=== PATIENT | female | born 1990 | race Caucasian/White ===

== ENCOUNTER → 2016-05-30 | Outpatient (CLI) | payer BC ==
[~2016-05-30] MED LIST: HMLI SC; INSDGI SC
[2016-05-30 15:04] LABS: ESTIMATED AVERAGE GLUCOSE 237 mg/dl; HA1C FLAG Normal (Normal)
[2016-05-30 15:12] LABS: ALT/SGPT 30 U/L (12-78); BLOOD UREA NITROGEN 14 mg/dl (7-18); BUN/CREATININE RATIO 23.4 (10-20); CARBON DIOXIDE 27 mmol/L (21-32); CHLORIDE 100 mmol/L (98-107); CHOLESTEROL 251 mg/dl (0-200); CREATININE 0.59 mg/dl (0.60-1.20); GLUCOSE 174 mg/dl (70-99); POTASSIUM 4.2 mmol/L (3.5-5.1); SODIUM 135 mmol/L (136-145); TRIGLYCERIDES 124 mg/dl (0-150); VERY LOW DENSITY LIPOPROT CALC 25 mg/dl
[2016-05-30 15:17] LABS: CALCIUM 9.5 mg/dl (8.5-10.1)
[2016-05-30 15:22] LABS: ALB/GLOB RATIO 1.1 (0.9-2); ALKALINE PHOSPHATASE 56 U/L (45-117); AST/SGOT 16 U/L (15-37); HDL CHOLESTEROL 84 mg/dl; LDL CHOLESTEROL CALCULATED 142 mg/dl
[2016-05-30 15:47] LABS: RATIO 290.9 mcg/mg (0-30.0)
--- NOTE | 2016-06-05 11:55 | CODING QUERY MEDICAL NECESSITY ---
SUPPORTING DIAGNOSIS NEEDED A supporting diagnosis is required for the test/procedure performed on this patient in order for us to be reimbursed by the patient's insurance. Please provide a supporting diagnosis for the following test/procedure listed below next to the test name along with your signature. *If there is no additional diagnosis for this patient that would support the following test/procedure please document that below next to the test/procedure. Test(s)/Procedure(s) that require a supporting diagnosis: DOS 05/30 * Vitamin D DIAGNOSIS: Provider Signature: Date: Thank you Lucie Hess [facility] Information [facility] Once completed, please kindly fax back to [phone] For questions please call [phone]
== END | disposition home or self-care (01) ==
LOC: C.LAB1850 13:16
PROVIDERS: ATTEND Internal Medicine Endocrinology, Diabetes & Metabolism
DX: Z72.0 Tobacco use (principal); F41.8 Other specified anxiety disorders; E10.3299 Type 1 diabetes mellitus with mild nonproliferative diabetic retinopathy without macular edema, unspecified eye; E10.9 Type 1 diabetes mellitus without complications; E55.9 Vitamin D deficiency, unspecified

== ENCOUNTER 2022-07-19 21:20 | Observation (INO) ==
[2022-07-19] MEDS ORDERED: ONDANSETRON INJ 2 MG/ML 2 ML VIAL IV STA (21:32)
[2022-07-19] MEDS ORDERED: SODIUM CHLORIDE 0.9% 1000ML 1,000 ML IV ONE ×2 (21:44→22:28)
[2022-07-19 21:55] LABS: Basophils # (auto) 0.08 K/uL (0-0.2); Basophils % (auto) 0.5 %; Hematocrit (blood only) 45.7 % (37.0-47.0); Hemoglobin 14.7 g/dl (12.0-16.0); Immature Granulocytes # (auto) 0.08 K/uL (0.01-0.20); Immature Granulocytes % (auto) 0.5 %; Lymphocytes # (auto) 0.85 K/uL (1.2-3.4); Lymphocytes % (auto) 5.4 %; Mean Corpuscular Hemoglobin 38.3 pg (25.0-34.0); Mean Corpuscular Hgb Conc 32.2 g/dL (32.0-36.0); Mean Platelet Volume 10.6 fL (9.4-12.4); Monocytes # (auto) 1.06 K/uL (0.11-0.59); Monocytes % (auto) 6.7 %; Neutrophils # (auto) 13.66 K/uL (1.40-6.50); Neutrophils % (auto) 86.9 %; Platelet Count 265 K/uL (130-400); RDW Standard Deviation 57.5 fL (36.4-46.3); Red Blood Count 3.84 M/uL (4.20-5.40); White Blood Count 15.73 K/ul (4.8-10.8)
[2022-07-19 22:12] LABS: Base Excess VBG -23.5 mEq/L; HCO3 VBG 6 mmol/L; Oxygen Saturation VBG 81.5 %; PCO2 VBG 25 mmHg (38-50); PO2 VBG 55 mmHg; pH VBG 7.01 (7.36-7.41)
[2022-07-19 22:15] LABS: Macrocytosis Present; Tear Drop Cells 1+
[2022-07-19 22:16] LABS: Pregnancy Test, Serum Negative (Negative)
[2022-07-19 22:18] LABS: Albumin Globulin Ratio 1.3 (0.9-2); Albumin Level 4.3 gm/dl (3.4-5.0); BUN Creatinine Ratio 14.9 (10-20); Bilirubin,Total 0.4 mg/dl (0.2-1.0); Calcium 9.3 mg/dl (8.6-10.3); Creatinine Clr Calc Pharmacy 75.6 ml/min; Est GFR (African American) 85.9 ml/min; Est GFR (Non-African American) 74.1 ml/min; Globulin 3.3 gm/dl (2.5-4.0); Magnesium 1.9 mg/dl (1.7-2.4); Potassium 5.2 mmol/L (3.5-5.1); Total Protein 7.6 gm/dl (6.0-8.3); Troponin I High Sensitivity 14.9 pg/ml (0-14)
[2022-07-19] MEDS ORDERED: STAT IV Infusion **Titration per Protocol STA (22:20)
[2022-07-19] MEDS ORDERED: PHARMACY GLYCEMIC MGMT CONSULT PRN (22:20)
[2022-07-19] MEDS ORDERED: NovoLIN-R BOLUS FROM BAG IV ONE (22:30)
[2022-07-19] MEDS ORDERED: DKA GOAL RANGE 150-250 mg/dl ONE (22:30)
[2022-07-19] MEDS ORDERED: INSULIN REGULAR 250 UNITS in SODIUM CHLORIDE 0.9% 247.5 ML IV SCH (22:30)
[2022-07-19] MEDS ORDERED: LACTATED RINGER'S 1,000 ML IV ONE (22:34)
[2022-07-19 22:36] LABS: Procalcitonin 0.37 ng/ml (0-0.5)
[2022-07-19 22:57] LABS: Base Excess ABG -21.7 mEq/L (-9-1.8); HCO3 ABG 5 mmol/L (19-24); Oxygen Saturation ABG 99.3 % (90-95); PCO2 ABG 16 mmHg (35-46); PO2 ABG 130 mmHg (80-95)
[2022-07-19 23:01] LABS: POC Urine Bilirubin Negative (Negative); POC Urine Blood Negative (Negative); POC Urine Glucose 1000 (Normal); POC Urine Ketones 3+ (Large) (Negative); POC Urine Leukocytes Negative (Negative); POC Urine Nitrite Negative (Negative); POC Urine Protein 1+ (Negative); POC Urine Urobilinogen Normal (Normal); POC Urine pH 5 (4.5-7.5)
[2022-07-19 23:04] LABS: Allen Test POS (Pos)
[2022-07-19 23:06] LABS: pH ABG 7.13 (7.35-7.45)
[2022-07-19 23:09] LABS: Appearance Urine Clear (Clear); Bacteria Urine Automated Negative (Negative); Bilirubin Urine Negative (Negative); Blood Urine Trace (Negative); Color Urine Yellow; Epithelial Cell Urine Auto 20-30 /lpf (0-5); Glucose Urine UA 3+ (Negative); Ketones Urine 4+ (Negative); Leukocyte Esterase Urine Negative (Negative); Nitrite Urine Negative (Negative); Protein Urine 2+ (Negative); RBC Urine Automated 0-4 /hpf (0-4); Urobilinogen Urine Negative (Negative)
--- NOTE | 2022-07-19 23:39 | Emergency Department Note ---
History of Present Illness General Chief complaint: Vomiting Stated complaint: NOT EATING,TYPE 1 DIABETIC,UNABLE TO KEEP FOOD MATEUSZ Time Seen by Provider: 07/19/22 21:41 History of Present Illness This 31-year-old type I diabetic presents the ER complaining of fever today with nausea and vomiting. She has been taking her insulin as directed. Patient denies chest pain, dyspnea, diarrhea, abdominal pain, headache, sore throat. She cannot keep fluids down. No recent DKA. Home Medications Medication Instructions Recorded Confirmed Type cholecalciferol (vitamin D3) 25 0 mcg PO DAILY 07/19/22 07/19/22 History mcg (1,000 unit) tablet (Vitamin D3) insulin glargine 100 unit/mL (3 24 unit subcut QPM 07/19/22 07/19/22 History mL) subcutaneous pen (Lantus Solostar U-100 Insulin) insulin lispro 100 unit/mL 0 sliding scale dose subcut TIDM 07/19/22 07/19/22 History subcutaneous pen Allergies Allergy/AdvReac Type Severity Reaction Status Date / Time clarithromycin Allergy Unknown ? Unverified 07/19/22 23:53 Past Med/Surg History Medical History Diabetes mellitus type 1 (09/07/12) Surgical History No pertinent past surgical history Social History Smoking Status: Current every day smoker Tobacco Type: Cigarettes Preferred Language: Romanian Feels Safe at Home: Yes Review of Systems A total of 10 systems reviewed and were otherwise negative Physical Exam Vital Signs Vital Signs - 24 hr 07/19/22 21:22 07/19/22 22:54 07/19/22 22:50 Temperature 36.8 C Temperature Source Temporal Artery Scan Pulse Rate 118 H 103 H Pulse Rate [Apical] 103 H Pulse Rhythm Regular Pulse Rhythm [Apical] Regular Pulse Strength [Apical] Normal Respiratory Rate 22 16 16 Respiratory Effort / Characteristics Non-Labored Spontaneous Non-Labored Spontaneous Respiratory Depth Normal Normal Respiratory Pattern Regular Blood Pressure 133/74 Blood Pressure [Left Arm] 113/60 Blood Pressure Mean 93 Blood Pressure Mean [Left Arm] 77 Blood Pressure Position [Left Arm] Semi-fowlers Pulse Oximetry 97 100 100 Oxygen Delivery Method Room Air Room Air Room Air Sepsis Recent Fever Within 48 Hours No Sepsis New/Unexplained Change in Mental Status No Sepsis Action Taken by Nursing No Action Required 07/19/22 22:54 Temperature Temperature Source Pulse Rate 102 H Pulse Rate [Apical] Pulse Rhythm Pulse Rhythm [Apical] Pulse Strength [Apical] Respiratory Rate Respiratory Effort / Characteristics Respiratory Depth Respiratory Pattern Blood Pressure Blood Pressure [Left Arm] Blood Pressure Mean Blood Pressure Mean [Left Arm] Blood Pressure Position [Left Arm] Pulse Oximetry Oxygen Delivery Method Sepsis Recent Fever Within 48 Hours Sepsis New/Unexplained Change in Mental Status Sepsis Action Taken by Nursing VITALS: Vitals are noted on the nurse's note and reviewed by myself. Vital signs mildly tachycardic. GENERAL: Pleasant female dehydrated appearing, in no acute distress, nondiaphoretic, well-developed well-nourished. SKIN: The skin was without rashes, erythema, edema, or bruising. There is no tenting of the skin. Capillary reflex less than 2 seconds. HEAD: Normocephalic atraumatic. EARS: External auditory canals clear, tympanic membranes pearly trejo without erythema or effusion bilaterally. EYES: Pupils equal round and reactive to light and accommodation. Conjunctivae without injection, sclerae without icterus. Extraocular movements intact. NOSE: Patent, turbinates without inflammation or discharge. No sinus tenderness. MOUTH: Mucous membranes dry. Pharynx without erythema or exudate. Uvula mi dline. Airway patent. Tongue does not deviate. NECK: Supple without nuchal rigidity. No lymphadenopathy. No thyromegaly. Cervical spine is nontender. No JVD. HEART: Regular rate and rhythm LUNGS: Clear to auscultation bilaterally without wheezes, rales or rhonchi. No retractions or accessory muscle use. ABDOMEN: Positive bowel sounds x 4. Normal tympanic percussion. Soft, nontender, without masses or organomegaly. Avila sign negative. No guarding or rebound tenderness. No CVA tenderness MUSCULOSKELETAL: No muscle atrophy, erythema, or edema noted. NEURO: Patient was alert and oriented to person place and time. Normal sensation to light and sharp touch. No focal neurological deficits. Course Administered Medications Insulin Human Regular 250 (units/ Sodium Chloride) 250 mls @ 6.2 mls/hr IV .Q24H [facility]; Protocol Stop: 08/18/22 22:29 Last Admin: 07/19/22 22:47 Dose: 6.2 units/hr, 6.2 mls/hr Documented By: HOLLIE Co-signed By: SOSA Discontinued Medications Sodium Chloride (Nss 1000ml) 1,000 mls @ 999 mls/hr IV .Q1H1M ONE Stop: 07/19/22 22:44 Last Infusion: 07/19/22 22:49 Dose: 0 mls/hr Documented By: Admin: 07/19/22 21:47 Dose: 999 mls/hr Documented By: SOSA Sodium Chloride (Nss 1000ml) 1,000 mls @ 999 mls/hr IV .Q1H1M ONE Stop: 07/19/22 23:28 Last Infusion: 07/19/22 23:55 Dose: 0 mls/hr Documented By: Admin: 07/19/22 22:50 Dose: 999 mls/hr Documented By: DARBY Lactated Ringer's (Lr) 1,000 mls @ 999 mls/hr IV .Q1H1M ONE Stop: 07/19/22 23:34 Last Infusion: 07/19/22 23:56 Dose: 0 mls/hr Documented By: Admin: 07/19/22 22:53 Dose: 999 mls/hr Documented By: HOLLIE Thiamine HCl 100 mg/ Syringe 10 mls @ 2 mls/min IV NOW STA Stop: 07/19/22 23:56 Last Admin: 07/20/22 00:43 Dose: 2 mls/min Documented By: HOLLIE Ioversol (Optiray 320 500ml) 110 ml IV ONCE ONE Stop: 07/20/22 00:21 Last Admin: 07/20/22 00:17 Dose: 110 ml Documented By: CARLITOS Ondansetron HCl (Ondansetron Inj 2 Mg/Ml 2 Ml Vial) 4 mg IV NOW STA Stop: 07/19/22 21:33 Last Admin: 07/19/22 21:35 Dose: 4 mg Documented By: DARBY Critical Care Time Critical Care Time: Yes Total Critical Care Time: 35 I have personally spent 35 minutes of critical care time in the direct management of this patient. This includes bedside care, interpretation of diagnostic studies, and testing, discussion with consultants, patient, and family members, and other required patient management activities. This 35 minutes is in excess of all separately billable procedures. Medical Decision Making Medical Records Attestation: I reviewed the patient's medical records. Home Medications Current Medication List: was personally reviewed by me Laboratory Data Attestation: I reviewed the patient's lab results. 07/19/22 21:35 07/19/22 21:35 Lab Results 07/19/22 07/19/22 07/19/22 Range/Units 21:26 21:35 21:35 WBC 15.73 H (4.8-10.8) K/ul RBC 3.84 L (4.20-5.40) M/uL Hgb 14.7 (12.0-16.0) g/dl Hct 45.7 (37.0-47.0) % MCV 119.0 H (80.0-100.0) fL MCH 38.3 H (25.0-34.0) pg MCHC 32.2 (32.0-36.0) g/dL RDW Std Deviation 57.5 H (36.4-46.3) fL RDW Coeff of Mandeep 13.0 (11.5-14.5) % Plt Count 265 (130-400) K/uL MPV 10.6 (9.4-12.4) fL Immature Gran % (Auto) 0.5 % Neut % (Auto) 86.9 % Lymph % (Auto) 5.4 % Sauk % (Auto) 6.7 % Eos % (Auto) 0.0 % Baso % (Auto) 0.5 % Neut # (Auto) 13.66 H (1.40-6.50) K/uL Lymph # (Auto) 0.85 L (1.2-3.4) K/uL [place]k # (Auto) 1.06 H (0.11-0.59) K/uL Eos # (Auto) 0.00 (0-0.50) K/uL Baso # (Auto) 0.08 (0-0.2) K/uL Immature Gran # (Auto) 0.08 (0.01-0.20) K/uL Macrocytosis Present Tear Drop Cells 1+ ABG pH (7.35-7.45) ABG pCO2 (35-46) mmHg ABG pO2 (80-95) mmHg ABG HCO3 (19-24) mmol/L ABG O2 Saturation (90-95) % ABG Base Excess (-9-1.8) mEq/L Jerson Test (Pos) VBG pH (7.36-7.41) VBG pCO2 (38-50) mmHg VBG pO2 mmHg VBG HCO3 mmol/L VBG O2 Saturation % VBG Base Excess mEq/L Oxygen Given Sodium 133 L (136-145) mmol/L Potassium 5.2 H (3.5-5.1) mmol/L Chloride 97 L (98-107) mmol/L Carbon Dioxide 5 L* (21-32) mmol/L Anion Gap 31 H (3-11) BUN 15 (6-23) mg/dl Creatinine 1.01 (0.6-1.2) mg/dl Est Cr Clr Drug Dosing 75.6 ml/min Est GFR ( Amer) 85.9 ml/min Est GFR (Non-Af Amer) 74.1 ml/min BUN/Creatinine Ratio 14.9 (10-20) Glucose 313 H* (70-99(Fasting)) mg/dl POC Glucose 325 H* (70-99) mg/dl Lactate (0.4-2.0) mmol/L Calcium 9.3 (8.6-10.3) mg/dl Phosphorus (2.5-4.9) mg/dl Magnesium 1.9 (1.7-2.4) mg/dl Total Bilirubin 0.4 (0.2-1.0) mg/dl AST 29 (13-39) U/L ALT 38 (7-52) U/L Alkaline Phosphatase 79 (34-104) U/L Troponin I High Sens 14.9 H (0-14) pg/ml Total Protein 7.6 (6.0-8.3) gm/dl Albumin 4.3 (3.4-5.0) gm/dl Globulin 3.3 (2.5-4.0) gm/dl Albumin/Globulin Ratio 1.3 (0.9-2) Lipase 4 L (11-82) U/L Procalcitonin (0-0.5) ng/ml HCG, Qual (Negative) Urine Color Urine Appearance (Clear) Urine pH (4.5-7.5) POC Urine pH (4.5-7.5) Ur Specific Dickinson (1.000-1.030) Urine Protein (Negative) POC Urine Protein (Negative) Urine Glucose (UA) (Negative) POC Ur Glucose (UA) (Normal) Urine Ketones (Negative) POC Urine Ketones (Negative) Urine Blood (Negative) POC Urine Blood (Negative) Urine Nitrite (Negative) POC Urine Nitrite (Negative) Urine Bilirubin (Negative) POC Urine Bilirubin (Negative) Urine Urobilinogen (Negative) POC Urine Urobilinogen (Normal) Ur Leukocyte Esterase (Negative) POC U Leukocyte Esteras (Negative) Urine WBC (Auto) (0-5) /hpf Urine RBC (Auto) (0-4) /hpf U Hyaline Cast (Auto) (0-5) /lpf U Epithel Cells (Auto) (0-5) /lpf Urine Bacteria (Auto) (Negative) Adenovirus (PCR) (NotDetected) B. pertussis DNA (PCR) (NotDetected) B.parapertussis DNA PCR (NotDetected) C. pneumoniae DNA (PCR) (NotDetected) Coronavirus OC43 (PCR) (NotDetected) Coronavirus HKU1 (PCR) (NotDetected) Coronavirus 229E (PCR) (NotDetected) SARS-CoV-2 (PCR) (NotDetected) Coronavirus NL63 (PCR) (NotDetected) Human Metapneumovir PCR (NotDetected) Influenza Type A (PCR) (NotDetected) Influenza Type B (PCR) (NotDetected) M. pneumoniae (PCR) (NotDetected) Parainfluenza 1 (PCR) (NotDetected) Parainfluenza 2 (PCR) (NotDetected) Parainfluenza 3 (PCR) (NotDetected) Parainfluenza 4 (PCR) (NotDetected) RSV (PCR) (NotDetected) Entero/Rhino (PCR) (NotDetected) 07/19/22 07/19/22 07/19/22 Range/Units 21:35 21:52 21:52 WBC (4.8-10.8) K/ul RBC (4.20-5.40) M/uL Hgb (12.0-16.0) g/dl Hct (37.0-47.0) % MCV (80.0-100.0) fL MCH (25.0-34.0) pg MCHC (32.0-36.0) g/dL RDW Std Deviation (36.4-46.3) fL RDW Coeff of Mandeep (11.5-14.5) % Plt Count (130-400) K/uL MPV (9.4-12.4) fL Immature Gran % (Auto) % Neut % (Auto) % Lymph % (Auto) % Sauk % (Auto) % Eos % (Auto) % Baso % (Auto) % Neut # (Auto) (1.40-6.50) K/uL Lymph # (Auto) (1.2-3.4) K/uL Sauk # (Auto) (0.11-0.59) K/uL Eos # (Auto) (0-0.50) K/uL Baso # (Auto) (0-0.2) K/uL Immature Gran # (Auto) (0.01-0.20) K/uL Macrocytosis Tear Drop Cells ABG pH (7.35-7.45) ABG pCO2 (35-46) mmHg ABG pO2 (80-95) mmHg ABG HCO3 (19-24) mmol/L ABG O2 Saturation (90-95) % ABG Base Excess (-9-1.8) mEq/L Jerson Test (Pos) VBG pH 7.01 L (7.36-7.41) VBG pCO2 25 L (38-50) mmHg VBG pO2 55 mmHg VBG HCO3 6 mmol/L VBG O2 Saturation 81.5 % VBG Base Excess -23.5 mEq/L Oxygen Given Sodium (136-145) mmol/L Potassium (3.5-5.1) mmol/L Chloride (98-107) mmol/L Carbon Dioxide (21-32) mmol/L Anion Gap (3-11) BUN (6-23) mg/dl Creatinine (0.6-1.2) mg/dl Est Cr Clr Drug Dosing ml/min Est GFR ( Amer) ml/min Est GFR (Non-Af Amer) ml/min BUN/Creatinine Ratio (10-20) Glucose (70-99(Fasting)) mg/dl POC Glucose (70-99) mg/dl Lactate 2.8 H* (0.4-2.0) mmol/L Calcium (8.6-10.3) mg/dl Phosphorus (2.5-4.9) mg/dl Magnesium (1.7-2.4) mg/dl Total Bilirubin (0.2-1.0) mg/dl AST (13-39) U/L ALT (7-52) U/L Alkaline Phosphatase (34-104) U/L Troponin I High Sens (0-14) pg/ml Total Protein (6.0-8.3) gm/dl Albumin (3.4-5.0) gm/dl Globulin (2.5-4.0) gm/dl Albumin/Globulin Ratio (0.9-2) Lipase (11-82) U/L Procalcitonin 0.37 (0-0.5) ng/ml HCG, Qual Negative (Negative) Urine Color Urine Appearance (Clear) Urine pH (4.5-7.5) POC Urine pH (4.5-7.5) Ur Specific Dickinson (1.000-1.030) Urine Protein (Negative) POC Urine Protein (Negative) Urine Glucose (UA) (Negative) POC Ur Glucose (UA) (Normal) Urine Ketones (Negative) POC Urine Ketones (Negative) Urine Blood (Negative) POC Urine Blood (Negative) Urine Nitrite (Negative) POC Urine Nitrite (Negative) Urine Bilirubin (Negative) POC Urine Bilirubin (Negative) Urine Urobilinogen (Negative) POC Urine Urobilinogen (Normal) Ur Leukocyte Esterase (Negative) POC U Leukocyte Esteras (Negative) Urine WBC (Auto) (0-5) /hpf Urine RBC (Auto) (0-4) /hpf U Hyaline Cast (Auto) (0-5) /lpf U Epithel Cells (Auto) (0-5) /lpf Urine Bacteria (Auto) (Negative) Adenovirus (PCR) (NotDetected) B. pertussis DNA (PCR) (NotDetected) B.parapertussis DNA PCR (NotDetected) C. pneumoniae DNA (PCR) (NotDetected) Coronavirus OC43 (PCR) (NotDetected) Coronavirus HKU1 (PCR) (NotDetected) Coronavirus 229E (PCR) (NotDetected) SARS-CoV-2 (PCR) (NotDetected) Coronavirus NL63 (PCR) (NotDetected) Human Metapneumovir PCR (NotDetected) Influenza Type A (PCR) (NotDetected) Influenza Type B (PCR) (NotDetected) M. pneumoniae (PCR) (NotDetected) Parainfluenza 1 (PCR) (NotDetected) Parainfluenza 2 (PCR) (NotDetected) Parainfluenza 3 (PCR) (NotDetected) Parainfluenza 4 (PCR) (NotDetected) RSV (PCR) (NotDetected) Entero/Rhino (PCR) (NotDetected) 07/19/22 07/19/22 07/19/22 Range/Units 21:52 22:37 22:41 WBC (4.8-10.8) K/ul RBC (4.20-5.40) M/uL Hgb (12.0-16.0) g/dl Hct (37.0-47.0) % MCV (80.0-100.0) fL MCH (25.0-34.0) pg MCHC (32.0-36.0) g/dL RDW Std Deviation (36.4-46.3) fL RDW Coeff of Mandeep (11.5-14.5) % Plt Count (130-400) K/uL MPV (9.4-12.4) fL Immature Gran % (Auto) % Neut % (Auto) % Lymph % (Auto) % Sauk % (Auto) % Eos % (Auto) % Baso % (Auto) % Neut # (Auto) (1.40-6.50) K/uL Lymph # (Auto) (1.2-3.4) K/uL [place] # (Auto) (0.11-0.59) K/uL Eos # (Auto) (0-0.50) K/uL Baso # (Auto) (0-0.2) K/uL Immature Gran # (Auto) (0.01-0.20) K/uL Macrocytosis Tear Drop Cells ABG pH 7.13 L* (7.35-7.45) ABG pCO2 16 L (35-46) mmHg ABG pO2 130 H (80-95) mmHg ABG HCO3 5 L (19-24) mmol/L ABG O2 Saturation 99.3 H (90-95) % ABG Base Excess -21.7 L (-9-1.8) mEq/L Jerson Test POS (Pos) VBG pH (7.36-7.41) VBG pCO2 (38-50) mmHg VBG pO2 mmHg VBG HCO3 mmol/L VBG O2 Saturation % VBG Base Excess mEq/L Oxygen Given ROOM AIR Sodium 134 L (136-145) mmol/L Potassium 4.8 (3.5-5.1) mmol/L Chloride 98 (98-107) mmol/L Carbon Dioxide 7 L* (21-32) mmol/L Anion Gap 29 H (3-11) BUN 15 (6-23) mg/dl Creatinine 0.92 (0.6-1.2) mg/dl Est Cr Clr Drug Dosing 82.9 ml/min Est GFR ( Amer) 96.2 ml/min Est GFR (Non-Af Amer) 83.0 ml/min BUN/Creatinine Ratio 16.3 (10-20) Glucose 258 H (70-99(Fasting)) mg/dl POC Glucose (70-99) mg/dl Lactate (0.4-2.0) mmol/L Calcium 8.7 (8.6-10.3) mg/dl Phosphorus 5.3 H (2.5-4.9) mg/dl Magnesium (1.7-2.4) mg/dl Total Bilirubin (0.2-1.0) mg/dl AST (13-39) U/L ALT (7-52) U/L Alkaline Phosphatase (34-104) U/L Troponin I High Sens (0-14) pg/ml Total Protein (6.0-8.3) gm/dl Albumin (3.4-5.0) gm/dl Globulin (2.5-4.0) gm/dl Albumin/Globulin Ratio (0.9-2) Lipase (11-82) U/L Procalcitonin (0-0.5) ng/ml HCG, Qual (Negative) Urine Color Urine Appearance (Clear) Urine pH (4.5-7.5) POC Urine pH (4.5-7.5) Ur Specific Dickinson (1.000-1.030) Urine Protein (Negative) POC Urine Protein (Negative) Urine Glucose (UA) (Negative) POC Ur Glucose (UA) (Normal) Urine Ketones (Negative) POC Urine Ketones (Negative) Urine Blood (Negative) POC Urine Blood (Negative) Urine Nitrite (Negative) POC Urine Nitrite (Negative) Urine Bilirubin (Negative) POC Urine Bilirubin (Negative) Urine Urobilinogen (Negative) POC Urine Urobilinogen (Normal) Ur Leukocyte Esterase (Negative) POC U Leukocyte Esteras (Negative) Urine WBC (Auto) (0-5) /hpf Urine RBC (Auto) (0-4) /hpf U Hyaline Cast (Auto) (0-5) /lpf U Epithel Cells (Auto) (0-5) /lpf Urine Bacteria (Auto) (Negative) Adenovirus (PCR) Not Detected (NotDetected) B. pertussis DNA (PCR) Not Detected (NotDetected) B.parapertussis DNA PCR Not Detected (NotDetected) C. pneumoniae DNA (PCR) Not Detected (NotDetected) Coronavirus OC43 (PCR) Not Detected (NotDetected) Coronavirus HKU1 (PCR) Not Detected (NotDetected) Coronavirus 229E (PCR) Not Detected (NotDetected) SARS-CoV-2 (PCR) DETECTED A* (NotDetected) Coronavirus NL63 (PCR) Not Detected (NotDetected) Human Metapneumovir PCR Not Detected (NotDetected) Influenza Type A (PCR) Not Detected (NotDetected) Influenza Type B (PCR) Not Detected (NotDetected) M. pneumoniae (PCR) Not Detected (NotDetected) Parainfluenza 1 (PCR) Not Detected (NotDetected) Parainfluenza 2 (PCR) Not Detected (NotDetected) Parainfluenza 3 (PCR) Not Detected (NotDetected) Parainfluenza 4 (PCR) Not Detected (NotDetected) RSV (PCR) Not Detected (NotDetected) Entero/Rhino (PCR) Not Detected (NotDetected) 07/19/22 07/19/22 Range/Units 22:44 22:44 WBC (4.8-10.8) K/ul RBC (4.20-5.40) M/uL Hgb (12.0-16.0) g/dl Hct (37.0-47.0) % MCV (80.0-100.0) fL MCH (25.0-34.0) pg MCHC (32.0-36.0) g/dL RDW Std Deviation (36.4-46.3) fL RDW Coeff of Mandeep (11.5-14.5) % Plt Count (130-400) K/uL MPV (9.4-12.4) fL Immature Gran % (Auto) % Neut % (Auto) % Lymph % (Auto) % [place] % (Auto) % Eos % (Auto) % Baso % (Auto) % Neut # (Auto) (1.40-6.50) K/uL Lymph # (Auto) (1.2-3.4) K/uL [place] # (Auto) (0.11-0.59) K/uL Eos # (Auto) (0-0.50) K/uL Baso # (Auto) (0-0.2) K/uL Immature Gran # (Auto) (0.01-0.20) K/uL Macrocytosis Tear Drop Cells ABG pH (7.35-7.45) ABG pCO2 (35-46) mmHg ABG pO2 (80-95) mmHg ABG HCO3 (19-24) mmol/L ABG O2 Saturation (90-95) % ABG Base Excess (-9-1.8) mEq/L Jerson Test (Pos) VBG pH (7.36-7.41) VBG pCO2 (38-50) mmHg VBG pO2 mmHg VBG HCO3 mmol/L VBG O2 Saturation % VBG Base Excess mEq/L Oxygen Given Sodium (136-145) mmol/L Potassium (3.5-5.1) mmol/L Chloride (98-107) mmol/L Carbon Dioxide (21-32) mmol/L Anion Gap (3-11) BUN (6-23) mg/dl Creatinine (0.6-1.2) mg/dl Est Cr Clr Drug Dosing ml/min Est GFR ( Amer) ml/min Est GFR (Non-Af Amer) ml/min BUN/Creatinine Ratio (10-20) Glucose (70-99(Fasting)) mg/dl POC Glucose (70-99) mg/dl Lactate (0.4-2.0) mmol/L Calcium (8.6-10.3) mg/dl Phosphorus (2.5-4.9) mg/dl Magnesium (1.7-2.4) mg/dl Total Bilirubin (0.2-1.0) mg/dl AST (13-39) U/L ALT (7-52) U/L Alkaline Phosphatase (34-104) U/L Troponin I High Sens (0-14) pg/ml Total Protein (6.0-8.3) gm/dl Albumin (3.4-5.0) gm/dl Globulin (2.5-4.0) gm/dl Albumin/Globulin Ratio (0.9-2) Lipase (11-82) U/L Procalcitonin (0-0.5) ng/ml HCG, Qual (Negative) Urine Color Yellow Urine Appearance Clear (Clear) Urine pH 5.0 (4.5-7.5) POC Urine pH 5 (4.5-7.5) Ur Specific Dickinson 1.020 (1.000-1.030) Urine Protein 2+ H (Negative) POC Urine Protein 1+ H (Negative) Urine Glucose (UA) 3+ H (Negative) POC Ur Glucose (UA) 1000 H (Normal) Urine Ketones 4+ H (Negative) POC Urine Ketones 3+ (Large) H (Negative) Urine Blood Trace H (Negative) POC Urine Blood Negative (Negative) Urine Nitrite Negative (Negative) POC Urine Nitrite Negative (Negative) Urine Bilirubin Negative (Negative) POC Urine Bilirubin Negative (Negative) Urine Urobilinogen Negative (Negative) POC Urine Urobilinogen Normal (Normal) Ur Leukocyte Esterase Negative (Negative) POC U Leukocyte Esteras Negative (Negative) Urine WBC (Auto) 1-5 (0-5) /hpf Urine RBC (Auto) 0-4 (0-4) /hpf U Hyaline Cast (Auto) 1-5 (0-5) /lpf U Epithel Cells (Auto) 20-30 H (0-5) /lpf Urine Bacteria (Auto) Negative (Negative) Adenovirus (PCR) (NotDetected) B. pertussis DNA (PCR) (NotDetected) B.parapertussis DNA PCR (NotDetected) C. pneumoniae DNA (PCR) (NotDetected) Coronavirus OC43 (PCR) (NotDetected) Coronavirus HKU1 (PCR) (NotDetected) Coronavirus 229E (PCR) (NotDetected) SARS-CoV-2 (PCR) (NotDetected) Coronavirus NL63 (PCR) (NotDetected) Human Metapneumovir PCR (NotDetected) Influenza Type A (PCR) (NotDetected) Influenza Type B (PCR) (NotDetected) M. pneumoniae (PCR) (NotDetected) Parainfluenza 1 (PCR) (NotDetected) Parainfluenza 2 (PCR) (NotDetected) Parainfluenza 3 (PCR) (NotDetected) Parainfluenza 4 (PCR) (NotDetected) RSV (PCR) (NotDetected) Entero/Rhino (PCR) (NotDetected) Imaging Data Attestation: I personally reviewed and interpreted this imaging study as follows: Radiologist's Impression: Chest CTA 07/19/22 23:34 Exam(s): CTA CHEST IV Amt: 110 ML EXAM: CT Angiography Chest With Intravenous Contrast CLINICAL HISTORY: Reason for exam: PE. TECHNIQUE: Axial computed tomographic angiography images of the chest with intravenous contrast. CTDI is 24.38 mGy and DLP is 371.41 mGy-cm. Automated exposure control was utilized for the study. A dose lowering technique was utilized adhering to the principles of ALARA. MIP reconstructed images were created and reviewed. COMPARISON: No relevant prior studies available. FINDINGS: Pulmonary arteries: Unremarkable. No pulmonary embolism. Aorta: No acute findings. No thoracic aortic aneurysm. Lungs: Unremarkable. No mass. No consolidation. Pleural space: Unremarkable. No significant effusion. No pneumothorax. Heart: Unremarkable. No cardiomegaly. No significant pericardial effusion. No evidence of RV dysfunction. Bones/joints: No acute fracture. No dislocation. Soft tissues: Unremarkable. Lymph nodes: Unremarkable. No enlarged lymph nodes. IMPRESSION: Normal chest CTA. No pulmonary embolism. Electronically signed by: Finesse Allen MD 07/20/22 01:00 AM [facility] Narrative Prior records/ancillary studies reviewed. Triage Nursing notes reviewed. Additional history obtained from the family. The patient's history was concerning for nausea, vomiting, and abdominal pain. Differential diagnosis: Etiologies such as DKA, gastroenteritis, food borne illness, infections, appendicitis, diverticulitis, inflammatory bowel disease, obstruction, GI bleed, biliary pathology, as well as others were entertained. Physical examination findings: As above. Abdominal examination revealed nontender. Vital signs reviewed and revealed mildly tachycardic. ER treatment provided: IV hydration 2 L NSS. 2 lines were placed. Zofran, insulin with drip, maintenance fluids were placed On reassessment the patient felt better. Patient was tolerating p.o. intake. Diagnostics interpretation by me: The labs Independently Interpreted by myself revealed hyperglycemia with DKA ABG and VBG concerning for severe DKA Positive COVID Blood cultures pending Imaging studies: Chest x-ray with no acute consolidation, pneumothorax or free air per my indep endent interpretation CTA negative for PE per my independent interpretation and reviewed by radiology Consultation: A consultation was placed with the hospitalist. The case was discussed and diagnostics were reviewed. The patient was evaluated in the ER for further treatment. This appears to be consistent with DKA. 2 lines were placed. Patient was hydrated as above. Insulin drip was started. Labs and diagnostics were independently interpreted by myself. Troponin minimally elevated. EKG is nonischemic. Patient had no chest pain. This most likely is a type II. She was reassessed multiple times. Medicine consulted and the case was discussed. Patient will be admitted to the hospital. Patient is agreeable. Patient was reassessed multiple times. She was improving.. By the evaluation outlined above emergent etiologies such as appendicitis, diverticulitis, obstruction, mese nteric ischemia, aortic pathology, inflammatory bowel disease, renal colic, PUD, biliary pathology, UTI, as well as others were deemed relatively unlikely. The pt informed about the findings as listed above. All questions were answered and pleased with the treatment. The chart was completed utilizing [employer] Speech voice recognition software. Grammatical errors, random word insertions, pronoun errors, and incomplete sentences are an occassional consequence of this system due to software limitations, ambient noise, and hardware issues. Any formal questions or concerns about the content, text, or information contained within the body of this dictation should be directly addressed to the physician fitness assistant for clarification. Impression & Plan DKA (diabetic ketoacidosis) Discharge Plan Visit Data Chief Complaint: Vomiting Stated Complaint: NOT EATING,TYPE 1 DIABETIC,UNABLE TO KEEP FOOD MATEUSZ ED Provider: Dave Knott ED Midlevel Provider: Gabby Allen Discharge Problem: DKA (diabetic ketoacidosis) Patient Disposition: Admitted As Inpatient Condition: Fair Forms Stand Alone Forms: [employer] Prescriptions Prescriptions: No Action insulin lispro 100 unit/mL insulin pen 0 sliding scale dose SUBCUT TIDM Rx Instructions: Per sliding scale & correction factor insulin glargine [Lantus Solostar U-100 Insulin] 100 unit/mL (3 mL) insulin pen 24 unit SUBCUT QPM cholecalciferol (vitamin D3) [Vitamin D3] 25 mcg (1,000 unit) Tablet 0 mcg PO DAILY Referrals Referrals: Ed Stone [Primary Care Provider] - DKA (diabetic ketoacidosis) Qualifiers: Diabetes mellitus type: type 1 Diabetes mellitus complication detail: without coma Qualified Code(s): E10.10 - Type 1 diabetes mellitus with ketoacidosis without coma
[2022-07-19] MEDS ORDERED: THIAMINE HCL 100 MG in SYRINGE 9 ML IV STA (23:52)
[2022-07-20] MEDS ORDERED: OPTIRAY 320 500ml IV ONE (00:20)
[2022-07-20 00:33] LABS: Adenovirus PCR Not Detected (NotDetected); Coronavirus 229E PCR Not Detected (NotDetected); Coronavirus CoV-2 (COVID19)PCR DETECTED (NotDetected); Coronavirus HKU1 PCR Not Detected (NotDetected); Coronavirus NL63 PCR Not Detected (NotDetected); Coronavirus OC43PCR Not Detected (NotDetected); Human Metapneumovirus PCR Not Detected (NotDetected); Influenza A PCR Not Detected (NotDetected); Rhinovirus/Enterovirus PCR Not Detected (NotDetected)
[2022-07-20 00:34] LABS: Bordetella parapertussis PCR Not Detected (NotDetected); Bordetella pertussis PCR Not Detected (NotDetected); Chlamydia pneumoniae PCR Not Detected (NotDetected); Influenza B PCR Not Detected (NotDetected); Mycoplasma pneumoniae PCR Not Detected (NotDetected); Parainfluenza Virus 1 PCR Not Detected (NotDetected); Parainfluenza Virus 2 PCR Not Detected (NotDetected); Parainfluenza Virus 3 PCR Not Detected (NotDetected); Parainfluenza Virus 4 PCR Not Detected (NotDetected); Respiratory Syncytial VirusPCR Not Detected (NotDetected)
--- NOTE | 2022-07-20 01:01 | CT Scan Report ---
Exam(s): CTA CHEST IV Amt: 110 ML EXAM: CT Angiography Chest With Intravenous Contrast CLINICAL HISTORY: Reason for exam: PE. TECHNIQUE: Axial computed tomographic angiography images of the chest with intravenous contrast. CTDI is 24.38 mGy and DLP is 371.41 mGy-cm. Automated exposure control was utilized for the study. A dose lowering technique was utilized adhering to the principles of ALARA. MIP reconstructed images were created and reviewed. COMPARISON: No relevant prior studies available. FINDINGS: Pulmonary arteries: Unremarkable. No pulmonary embolism. Aorta: No acute findings. No thoracic aortic aneurysm. Lungs: Unremarkable. No mass. No consolidation. Pleural space: Unremarkable. No significant effusion. No pneumothorax. Heart: Unremarkable. No cardiomegaly. No significant pericardial effusion. No evidence of RV dysfunction. Bones/joints: No acute fracture. No dislocation. Soft tissues: Unremarkable. Lymph nodes: Unremarkable. No enlarged lymph nodes. IMPRESSION: Normal chest CTA. No pulmonary embolism. Electronically signed by: Finesse Allen MD 07/20/22 01:00 AM
[2022-07-20 01:07] LABS: BUN Creatinine Ratio 16.3 (10-20); Calcium 8.7 mg/dl (8.6-10.3); Creatinine Clr Calc Pharmacy 82.9 ml/min; Est GFR (African American) 96.2 ml/min; Phosphorus 5.3 mg/dl (2.5-4.9); Potassium 4.8 mmol/L (3.5-5.1)
--- NOTE | 2022-07-20 01:09 | History and Physical Report ---
DATE OF ADMISSION: 07/19/2022. CHIEF COMPLAINT: DKA, history of COVID. HISTORY OF PRESENT ILLNESS: This is a 31-year-old female with past medical history significant for type 1 diabetes, diagnosed when she was 7 years old, on insulin, history of celiac disease, presents with nausea, vomiting, shortness of breath and chest discomfort. The patient says the cough started yesterday and she was feeling short of breath since last couple of days, but got progressively worse walking short distance, making short of breath and also some chest tightness and today she also started to have nausea, vomiting and sugars were running high, the reason she came here and found to be in DKA. She says she also had some fever spike today. Denies any runny nose or sore throat. No headache, no blurred visions, no earache, no sore throat, no abdominal pain. Normal bowel and bladder movements. Currently, resting comfortably and hemodynamically stable. ALLERGIES: CLARITHROMYCIN. PAST MEDICAL HISTORY: As mentioned above. PAST SURGICAL HISTORY: EGDs. MEDICATIONS: The patient is on Lantus 60 units subcutaneous daily. FAMILY HISTORY: Significant for father had heart disease. Mother has hypertension . Both sides history of cancer.. Father also had a stroke. SOCIAL HISTORY: Smokes 1/2 pack to 1 pack daily. Alcohol, she has 2-3 shots of vodka or whiskey daily. Denies any drug use. REVIEW OF SYSTEMS: As per HPI. Rest of the review of systems is negative. PHYSICAL EXAMINATION: GENERAL: The patient is of moderate build, not in acute distress. VITAL SIGNS: Temperature 36.8, pulse 102, respiratory rate 16, blood pressure 113/60, oxygen 100% on room air. HEENT: Pupils equal, round and reactive to light. Oral mucosa moist. NECK: No JVD, no neck masses. CARDIOVASCULAR: S1 and S2 heard, regular rate and rhythm. No murmur, no gallop. RESPIRATORY SYSTEM: Normal AP diameter. No accessory muscle use. No wheezing, no crackles. ABDOMEN: Soft, bowel sounds present, nontender, no distention. CENTRAL NERVOUS SYSTEM: Alert and oriented. Speech is clear. No facial droop. Obeys simple commands. Moves extremities. EXTREMITIES: No edema, no erythema. LABORATORY DATA: WBC 15, hemoglobin 14.7, hematocrit 45.7, platelets 265. ABGs, pH of 7.13, pCO2 of 16, oxygen 130, bicarbonate 5. Oxygen 99%. Sodium 133, potassium 5.2, chloride 97, bicarbonate 5, BUN 15, creatinine 1.01, serum glucose 313. Lactate 2.8, calcium 9.3, magnesium 1.9, total bilirubin 0.4, AST 29, ALT 38, alkaline phosphatase 79. Troponin I high sensitivity 14.9. Lipase 4. HCG qualitative negative. Urinalysis, +6 glucose, +4 ketones. SARS-COVID pending, but seems to have COVID positive. IMAGING DATA: Chest x-ray, no acute findings. EKG: Sinus tachycardia at a rate of 109, no acute ST changes seen. ASSESSMENT AND PLAN: This is a 31-year-old female who presents in diabetic ketoacidosis. 1. Diabetic ketoacidosis. Coronavirus disease probably contributing. Starting on insulin drip diabetic ketoacidosis protocol. Aggressive IV fluids and maintenance fluids with potassium supplement as per diabetic ketoacidosis protocol. Labs every 4 hour as per diabetic ketoacidosis protocol. Closely monitor in the tele floor. Glycemic pharmacy consult. Diabetic education consult. We will monitor the response. 2. Shortness of breath, most likely secondary to metabolic acidosis, but also since she is coronavirus disease positive, we will check CT chest to rule out any disease or PE. The patient is okay for CAT scan. Saturating okay on room air. 3. Coronavirus disease 2019. The patient is coronavirus disease vaccinated, but not boosted. Saturating okay on room air. Coronavirus disease precautions. We will monitor. 4. Elevated lactate, mostly from diabetic ketoacidosis. We will follow the repeat labs. 5. Mild elevation of troponin. The patient has had some chest discomfort. EKG okay. Mostly from the diabetic ketoacidosis. We will follow serial enzymes. If pain continues, will do cardiac consult. Monitor in the tele floor. 6. History of celiac disease. 7. Tobacco abuse. Smokes 1/2 pack to 1 pack a day. Counseling. 8. Alcoholism. She drinks 2-3 shots of whiskey, vodka daily, but she says she has never had withdrawal symptoms, even if she doesn't drink for several days. We will monitor for any withdrawal symptoms. DISPOSITION: Closely monitor in tele floor. Level 1 full code. Expect to discharge home and follow with family doctor. Job ID: [id number] CHARLETTE
[2022-07-20 01:44] LABS: Troponin I High Sensitivity 11.4 pg/ml (0-14)
[2022-07-20] MEDS ORDERED: PENDING D5 1/2NS+20mEq KCL IVF SCH (01:54)
[2022-07-20] MEDS ORDERED: SODIUM CHLORIDE 0.9% 1000ML 1,000 ML IV SCH (01:54)
[2022-07-20] MEDS ORDERED: NITROGLYCERIN SL 0.4 MG/TAB TAB SL PRN (01:54)
[2022-07-20] MEDS ORDERED: ONDANSETRON INJ 2 MG/ML 2 ML VIAL IV PRN (01:54)
[2022-07-20] MEDS ORDERED: PENDING 1/2NSS+20mEq KCL IVF SCH (01:54)
[2022-07-20] MEDS ORDERED: STAT IV Infusion **Titration per Protocol STA (01:54)
[2022-07-20] MEDS ORDERED: PHARMACY GLYCEMIC MGMT CONSULT PRN (01:54)
[2022-07-20] MEDS ORDERED: DKA GOAL RANGE 150-250 mg/dl ONE (01:54)
[2022-07-20] MEDS ORDERED: ACETAMINOPHEN 325 MG TAB PO PRN (01:54)
[2022-07-20] MEDS ORDERED: CARBOHYDRATES FOR HYPOGLYCEMIA PO PRN (02:15)
[2022-07-20] MEDS ORDERED: GLUCOSE 10 TAB/TUBE PO PRN (02:15)
[2022-07-20] MEDS ORDERED: INSULIN REGULAR 250 UNITS in SODIUM CHLORIDE 0.9% 247.5 ML IV SCH (02:15)
[2022-07-20] MEDS ORDERED: GLUCAGON FOR INJ 1 MG VIAL IM PRN (02:15)
[2022-07-20] MEDS ORDERED: DEXTROSE 50% 50 ML SYRINGE IV PRN (02:15)
[2022-07-20] MEDS ORDERED: GLUCOSE 40% GEL 15 GM TUBE PO PRN (02:15)
[2022-07-20] MEDS: D5NSS + 20MEQ KCL 20 MEQ/1,000 ML BAG IV SCH ×2 (02:25→08:19)
[2022-07-20 02:53] LABS: BUN Creatinine Ratio 16.7 (10-20); Calcium 7.8 mg/dl (8.6-10.3); Est GFR (African American) 129.3 ml/min; Est GFR (Non-African American) 111.6 ml/min; Potassium 4.3 mmol/L (3.5-5.1)
[2022-07-20] MEDS ORDERED: INSULIN ASPART PER UNIT CHARGE SC SCH ×2 (06:00→07:30)
--- NOTE | 2022-07-20 07:38 | Electrocardiogram Report ---
Test Reason : Blood Pressure : / mmHG Vent. Rate : 109 BPM Atrial Rate : 109 BPM P-R Int : 138 ms QRS Dur : 074 ms QT Int : 354 ms P-R-T Axes : 066 022 068 degrees QTc Int : 476 ms Sinus tachycardia Otherwise normal ECG When compared with ECG of 07-SEP-2012 14:44, T wave inversion no longer evident in Anterior leads Confirmed by Dereck Gutierrez ([id number]) on 07/20/2022 7:37:57 AM Referred By: REFERRED SELF Confirmed By:Carlitos Gutierrez
[2022-07-20 08:09] LABS: BUN Creatinine Ratio 19.6 (10-20); Calcium 7.5 mg/dl (8.6-10.3); Creatinine Clr Calc Pharmacy 136.3 ml/min; Est GFR (Non-African American) 124.2 ml/min; Potassium 4.1 mmol/L (3.5-5.1)
[2022-07-20 08:39] LABS: Estimated Average Glucose 197 mg/dl; Hemoglobin A1C 8.5 % (4.5-5.6)
[2022-07-20] MEDS ORDERED: LANTUS PER UNIT CHARGE SC SCH (09:00)
[2022-07-20] MEDS ORDERED: ENOXAPARIN INJ 40 MG/0.4 ML SYR SQ SCH (09:00)
--- NOTE | 2022-07-20 09:26 | XRay Report ---
XR chest 1V portable CLINICAL HISTORY: cough/fever TECHNIQUE: Single frontal radiograph of the chest was obtained. Comparison: Comparison is made to chest radiograph 09/07/2012 FINDINGS: No lines and tubes are seen. The cardiomediastinal silhouette is normal. The lungs are clear. No evid ence of pleural effusion or pneumothorax. IMPRESSION: No acute abnormalities and in particular no radiographic evidence of pneumonia. ACT 112: Negative or not required by law. Electronically signed by: Bertram Gibbons M.D. 07/20/2022 9:25 AM
[2022-07-20 10:45] LABS: Calcium 7.7 mg/dl (8.6-10.3); Creatinine Clr Calc Pharmacy 138.7 ml/min; Est GFR (African American) 144.9 ml/min; Potassium 4.3 mmol/L (3.5-5.1)
[2022-07-20 10:52] LABS: Troponin I High Sensitivity 27.6 pg/ml (0-14)
--- NOTE | 2022-07-20 11:58 | Hospitalist Progress Note ---
Date of Service July 20, 2022 Assessment & Plan (1) DKA (diabetic ketoacidosis): (2) Diabetes mellitus type 1, uncontrolled: (3) Coronavirus infection: Plan: Patient found to be in DKA on presentation Was started on IVF, insulin drip per protocol BMP this morning show anion gap has closed. Start transition to sq insulin. Discussed with Pharmacist and RN Start po diet, carb controlled HbA1c is 8.5 Patient tested + to COVID 19 CTA chest was normal and lungs did not show consolidation Currently on room air No need for COVID specific therapies Continue supportive care (4) Elevated troponin: Plan: Trop mildly elevated EKG showed sinus rhythm May be related to acute illness, ?demand ischemia Monitor Counseled about need for adequate diabetic control, smoking cessation and alcohol use. DVT ppx - Lovenox sq I spent a total of 50 minutes coordinating, documenting and providing care for this patient excluding time spent in performance of separately billed services Admission and Anticipated Discharge Date Admission Date: July 19, 2022 Subjective Patient seen and examined Reported she started having some cough and mild shortness of breath 4 days ago, then nausea and vomiting yesterday Reported a fever at home Currently reports dry cough. No shortness of breath Reports vomiting has resolved. Nausea is improved. Denied any abd pain, diarrhea, constipation, dysuria, freq, urgency,hematuria Reports blood glucose had been very well controlled at home prior to getting sick. Physical Exam Constitutional: + well hydrated; no acute distress Eyes: PERRL, conjunctivae normal, anicteric sclerae ENMT: external ear and nose normal, oropharynx normal Respiratory: normal respiratory effort, lungs clear to auscultation Cardiovascular: Rate/Rhythm: regular rate and regular rhythm S1 S2 Gastrointestinal (Abdomen): normal bowel sounds, soft, nontender, no hepatosplenomegaly Musculoskeletal: no cyanosis or clubbing, extremities motor strength 5/5 Neurologic: PERRL, EOMI, accommodation nl, no face palsy, no dysarthria Psychiatric: A+Ox3, euthymic affect Results & Data Results & Data Vital Signs (Past 12 Hours) Vital Signs Temp Pulse Pulse Resp BP BP Pulse Ox 07/20/22 11:26 36.8 C 96 H 22 124/71 98 07/20/22 07:28 36.8 C 96 H 18 107/69 97 07/20/22 05:00 37.0 C 105 H 16 105/67 977 H 07/20/22 04:00 37.0 C 103 H 17 109/66 99 07/20/22 03:00 37.0 C 112 H 21 89/69 L 99 07/20/22 02:57 109 H 07/20/22 02:00 37.0 C 110 H 22 100/65 99 07/20/22 01:54 07/20/22 01:50 37.0 C 107 H 28 H 115/65 99 07/20/22 01:22 107 H 18 106/66 100 Pulse Ox O2 Del Method O2 Del Method 07/20/22 11:26 Room Air 07/20/22 07:28 Room Air 07/20/22 05:00 Room Air 07/20/22 04:00 Room Air 07/20/22 03:00 Room Air 07/20/22 02:57 07/20/22 02:00 Room Air 07/20/22 01:54 98 Room Air 07/20/22 01:50 Room Air 07/20/22 01:22 Room Air Laboratory Results Abnormal lab results 07/19/22 07/19/22 07/19/22 Range/Units 21:26 21:35 21:35 WBC 15.73 H (4.8-10.8) K/ul RBC 3.84 L (4.20-5.40) M/uL MCV 119.0 H (80.0-100.0) fL MCH 38.3 H (25.0-34.0) pg RDW Std Deviation 57.5 H (36.4-46.3) fL Neut # (Auto) 13.66 H (1.40-6.50) K/uL Lymph # (Auto) 0.85 L (1.2-3.4) K/uL [place] # (Auto) 1.06 H (0.11-0.59) K/uL ABG pH (7.35-7.45) ABG pCO2 (35-46) mmHg ABG pO2 (80-95) mmHg ABG HCO3 (19-24) mmol/L ABG O2 Saturation (90-95) % ABG Base Excess (-9-1.8) mEq/L VBG pH (7.36-7.41) VBG pCO2 (38-50) mmHg Sodium 133 L (136-145) mmol/L Potassium 5.2 H (3.5-5.1) mmol/L Chloride 97 L (98-107) mmol/L Carbon Dioxide 5 L* (21-32) mmol/L Anion Gap 31 H (3-11) Creatinine (0.6-1.2) mg/dl Glucose 313 H* (70-99(Fasting)) mg/dl POC Glucose 325 H* (70-99) mg/dl Hemoglobin A1c (4.5-5.6) % Lactate (0.4-2.0) mmol/L Calcium (8.6-10.3) mg/dl Phosphorus (2.5-4.9) mg/dl Troponin I High Sens 14.9 H (0-14) pg/ml Lipase 4 L (11-82) U/L Urine Protein (Negative) POC Urine Protein (Negative) Urine Glucose (UA) (Negative) POC Ur Glucose (UA) (Normal) Urine Ketones (Negative) POC Urine Ketones (Negative) Urine Blood (Negative) U Epithel Cells (Auto) (0-5) /lpf SARS-CoV-2 (PCR) (NotDetected) 07/19/22 07/19/22 07/19/22 Range/Units 21:52 21:52 21:52 WBC (4.8-10.8) K/ul RBC (4.20-5.40) M/uL MCV (80.0-100.0) fL MCH (25.0-34.0) pg RDW Std Deviation (36.4-46.3) fL Neut # (Auto) (1.40-6.50) K/uL Lymph # (Auto) (1.2-3.4) K/uL [place] # (Auto) (0.11-0.59) K/uL ABG pH (7.35-7.45) ABG pCO2 (35-46) mmHg ABG pO2 (80-95) mmHg ABG HCO3 (19-24) mmol/L ABG O2 Saturation (90-95) % ABG Base Excess (-9-1.8) mEq/L VBG pH 7.01 L (7.36-7.41) VBG pCO2 25 L (38-50) mmHg Sodium (136-145) mmol/L Potassium (3.5-5.1) mmol/L Chloride (98-107) mmol/L Carbon Dioxide (21-32) mmol/L Anion Gap (3-11) Creatinine (0.6-1.2) mg/dl Glucose (70-99(Fasting)) mg/dl POC Glucose (70-99) mg/dl Hemoglobin A1c (4.5-5.6) % Lactate 2.8 H* (0.4-2.0) mmol/L Calcium (8.6-10.3) mg/dl Phosphorus (2.5-4.9) mg/dl Troponin I High Sens (0-14) pg/ml Lipase (11-82) U/L Urine Protein (Negative) POC Urine Protein (Negative) Urine Glucose (UA) (Negative) POC Ur Glucose (UA) (Normal) Urine Ketones (Negative) POC Urine Ketones (Negative) Urine Blood (Negative) U Epithel Cells (Auto) (0-5) /lpf SARS-CoV-2 (PCR) DETECTED A* (NotDetected) 07/19/22 07/19/22 07/19/22 Range/Units 22:37 22:41 22:44 WBC (4.8-10.8) K/ul RBC (4.20-5.40) M/uL MCV (80.0-100.0) fL MCH (25.0-34.0) pg RDW Std Deviation (36.4-46.3) fL Neut # (Auto) (1.40-6.50) K/uL Lymph # (Auto) (1.2-3.4) K/uL [place] # (Auto) (0.11-0.59) K/uL ABG pH 7.13 L* (7.35-7.45) ABG pCO2 16 L (35-46) mmHg ABG pO2 130 H (80-95) mmHg ABG HCO3 5 L (19-24) mmol/L ABG O2 Saturation 99.3 H (90-95) % ABG Base Excess -21.7 L (-9-1.8) mEq/L VBG pH (7.36-7.41) VBG pCO2 (38-50) mmHg Sodium 134 L (136-145) mmol/L Potassium (3.5-5.1) mmol/L Chloride (98-107) mmol/L Carbon Dioxide 7 L* (21-32) mmol/L Anion Gap 29 H (3-11) Creatinine (0.6-1.2) mg/dl Glucose 258 H (70-99(Fasting)) mg/dl POC Glucose (70-99) mg/dl Hemoglobin A1c (4.5-5.6) % Lactate (0.4-2.0) mmol/L Calcium (8.6-10.3) mg/dl Phosphorus 5.3 H (2.5-4.9) mg/dl Troponin I High Sens (0-14) pg/ml Lipase (11-82) U/L Urine Protein (Negative) POC Urine Protein 1+ H (Negative) Urine Glucose (UA) (Negative) POC Ur Glucose (UA) 1000 H (Normal) Urine Ketones (Negative) POC Urine Ketones 3+ (Large) H (Negative) Urine Blood (Negative) U Epithel Cells (Auto) (0-5) /lpf SARS-CoV-2 (PCR) (NotDetected) 07/19/22 07/20/22 07/20/22 Range/Units 22:44 01:58 02:12 WBC (4.8-10.8) K/ul RBC (4.20-5.40) M/uL MCV (80.0-100.0) fL MCH (25.0-34.0) pg RDW Std Deviation (36.4-46.3) fL Neut # (Auto) (1.40-6.50) K/uL Lymph # (Auto) (1.2-3.4) K/uL [place] # (Auto) (0.11-0.59) K/uL ABG pH (7.35-7.45) ABG pCO2 (35-46) mmHg ABG pO2 (80-95) mmHg ABG HCO3 (19-24) mmol/L ABG O2 Saturation (90-95) % ABG Base Excess (-9-1.8) mEq/L VBG pH (7.36-7.41) VBG pCO2 (38-50) mmHg Sodium 134 L (136-145) mmol/L Potassium (3.5-5.1) mmol/L Chloride (98-107) mmol/L Carbon Dioxide 14 L (21-32) mmol/L Anion Gap 15 H (3-11) Creatinine (0.6-1.2) mg/dl Glucose 135 H (70-99(Fasting)) mg/dl POC Glucose 137 H (70-99) mg/dl Hemoglobin A1c (4.5-5.6) % Lactate (0.4-2.0) mmol/L Calcium 7.8 L (8.6-10.3) mg/dl Phosphorus (2.5-4.9) mg/dl Troponin I High Sens (0-14) pg/ml Lipase (11-82) U/L Urine Protein 2+ H (Negative) POC Urine Protein (Negative) Urine Glucose (UA) 3+ H (Negative) POC Ur Glucose (UA) (Normal) Urine Ketones 4+ H (Negative) POC Urine Ketones (Negative) Urine Blood Trace H (Negative) U Epithel Cells (Auto) 20-30 H (0-5) /lpf SARS-CoV-2 (PCR) (NotDetected) 07/20/22 07/20/22 07/20/22 Range/Units 02:12 02:12 03:20 WBC (4.8-10.8) K/ul RBC (4.20-5.40) M/uL MCV (80.0-100.0) fL MCH (25.0-34.0) pg RDW Std Deviation (36.4-46.3) fL Neut # (Auto) (1.40-6.50) K/uL Lymph # (Auto) (1.2-3.4) K/uL [place] # (Auto) (0.11-0.59) K/uL ABG pH (7.35-7.45) ABG pCO2 (35-46) mmHg ABG pO2 (80-95) mmHg ABG HCO3 (19-24) mmol/L ABG O2 Saturation (90-95) % ABG Base Excess (-9-1.8) mEq/L VBG pH 7.27 L (7.36-7.41) VBG pCO2 (38-50) mmHg Sodium (136-145) mmol/L Potassium (3.5-5.1) mmol/L Chloride (98-107) mmol/L Carbon Dioxide (21-32) mmol/L Anion Gap (3-11) Creatinine (0.6-1.2) mg/dl Glucose (70-99(Fasting)) mg/dl POC Glucose 137 H (70-99) mg/dl Hemoglobin A1c 8.5 H (4.5-5.6) % Lactate (0.4-2.0) mmol/L Calcium (8.6-10.3) mg/dl Phosphorus (2.5-4.9) mg/dl Troponin I High Sens (0-14) pg/ml Lipase (11-82) U/L Urine Protein (Negative) POC Urine Protein (Negative) Urine Glucose (UA) (Negative) POC Ur Glucose (UA) (Normal) Urine Ketones (Negative) POC Urine Ketones (Negative) Urine Blood (Negative) U Epithel Cells (Auto) (0-5) /lpf SARS-CoV-2 (PCR) (NotDetected) 07/20/22 07/20/22 07/20/22 Range/Units 04:18 05:11 06:30 WBC (4.8-10.8) K/ul RBC (4.20-5.40) M/uL MCV (80.0-100.0) fL MCH (25.0-34.0) pg RDW Std Deviation (36.4-46.3) fL Neut # (Auto) (1.40-6.50) K/uL Lymph # (Auto) (1.2-3.4) K/uL [place] # (Auto) (0.11-0.59) K/uL ABG pH (7.35-7.45) ABG pCO2 (35-46) mmHg ABG pO2 (80-95) mmHg ABG HCO3 (19-24) mmol/L ABG O2 Saturation (90-95) % ABG Base Excess (-9-1.8) mEq/L VBG pH (7.36-7.41) VBG pCO2 (38-50) mmHg Sodium (136-145) mmol/L Potassium (3.5-5.1) mmol/L Chloride (98-107) mmol/L Carbon Dioxide (21-32) mmol/L Anion Gap (3-11) Creatinine (0.6-1.2) mg/dl Glucose (70-99(Fasting)) mg/dl POC Glucose 122 H 124 H 136 H (70-99) mg/dl Hemoglobin A1c (4.5-5.6) % Lactate (0.4-2.0) mmol/L Calcium (8.6-10.3) mg/dl Phosphorus (2.5-4.9) mg/dl Troponin I High Sens (0-14) pg/ml Lipase (11-82) U/L Urine Protein (Negative) POC Urine Protein (Negative) Urine Glucose (UA) (Negative) POC Ur Glucose (UA) (Normal) Urine Ketones (Negative) POC Urine Ketones (Negative) Urine Blood (Negative) U Epithel Cells (Auto) (0-5) /lpf SARS-CoV-2 (PCR) (NotDetected) 07/20/22 07/20/22 07/20/22 Range/Units 07:11 07:40 07:40 WBC (4.8-10.8) K/ul RBC (4.20-5.40) M/uL MCV (80.0-100.0) fL MCH (25.0-34.0) pg RDW Std Deviation (36.4-46.3) fL Neut # (Auto) (1.40-6.50) K/uL Lymph # (Auto) (1.2-3.4) K/uL [place] # (Auto) (0.11-0.59) K/uL ABG pH (7.35-7.45) ABG pCO2 (35-46) mmHg ABG pO2 (80-95) mmHg ABG HCO3 (19-24) mmol/L ABG O2 Saturation (90-95) % ABG Base Excess (-9-1.8) mEq/L VBG pH (7.36-7.41) VBG pCO2 (38-50) mmHg Sodium 135 L (136-145) mmol/L Potassium (3.5-5.1) mmol/L Chloride 110 H (98-107) mmol/L Carbon Dioxide 20 L (21-32) mmol/L Anion Gap (3-11) Creatinine 0.56 L (0.6-1.2) mg/dl Glucose 115 H (70-99(Fasting)) mg/dl POC Glucose 113 H (70-99) mg/dl Hemoglobin A1c (4.5-5.6) % Lactate (0.4-2.0) mmol/L Calcium 7.5 L (8.6-10.3) mg/dl Phosphorus (2.5-4.9) mg/dl Troponin I High Sens 25.2 H D (0-14) pg/ml Lipase (11-82) U/L Urine Protein (Negative) POC Urine Protein (Negative) Urine Glucose (UA) (Negative) POC Ur Glucose (UA) (Normal) Urine Ketones (Negative) POC Urine Ketones (Negative) Urine Blood (Negative) U Epithel Cells (Auto) (0-5) /lpf SARS-CoV-2 (PCR) (NotDetected) 07/20/22 07/20/22 07/20/22 Range/Units 08:06 08:26 09:05 WBC (4.8-10.8) K/ul RBC (4.20-5.40) M/uL MCV (80.0-100.0) fL MCH (25.0-34.0) pg RDW Std Deviation (36.4-46.3) fL Neut # (Auto) (1.40-6.50) K/uL Lymph # (Auto) (1.2-3.4) K/uL [place] # (Auto) (0.11-0.59) K/uL ABG pH (7.35-7.45) ABG pCO2 (35-46) mmHg ABG pO2 (80-95) mmHg ABG HCO3 (19-24) mmol/L ABG O2 Saturation (90-95) % ABG Base Excess (-9-1.8) mEq/L VBG pH (7.36-7.41) VBG pCO2 (38-50) mmHg Sodium (136-145) mmol/L Potassium (3.5-5.1) mmol/L Chloride (98-107) mmol/L Carbon Dioxide (21-32) mmol/L Anion Gap (3-11) Creatinine (0.6-1.2) mg/dl Glucose (70-99(Fasting)) mg/dl POC Glucose 128 H 135 H 158 H (70-99) mg/dl Hemoglobin A1c (4.5-5.6) % Lactate (0.4-2.0) mmol/L Calcium (8.6-10.3) mg/dl Phosphorus (2.5-4.9) mg/dl Troponin I High Sens (0-14) pg/ml Lipase (11-82) U/L Urine Protein (Negative) POC Urine Protein (Negative) Urine Glucose (UA) (Negative) POC Ur Glucose (UA) (Normal) Urine Ketones (Negative) POC Urine Ketones (Negative) Urine Blood (Negative) U Epithel Cells (Auto) (0-5) /lpf SARS-CoV-2 (PCR) (NotDetected) 07/20/22 07/20/22 07/20/22 Range/Units 09:47 10:13 10:13 WBC (4.8-10.8) K/ul RBC (4.20-5.40) M/uL MCV (80.0-100.0) fL MCH (25.0-34.0) pg RDW Std Deviation (36.4-46.3) fL Neut # (Auto) (1.40-6.50) K/uL Lymph # (Auto) (1.2-3.4) K/uL [place] # (Auto) (0.11-0.59) K/uL ABG pH (7.35-7.45) ABG pCO2 (35-46) mmHg ABG pO2 (80-95) mmHg ABG HCO3 (19-24) mmol/L ABG O2 Saturation (90-95) % ABG Base Excess (-9-1.8) mEq/L VBG pH 7.32 L (7.36-7.41) VBG pCO2 (38-50) mmHg Sodium (136-145) mmol/L Potassium (3.5-5.1) mmol/L Chloride 109 H (98-107) mmol/L Carbon Dioxide 19 L (21-32) mmol/L Anion Gap (3-11) Creatinine 0.55 L (0.6-1.2) mg/dl Glucose 182 H (70-99(Fasting)) mg/dl POC Glucose 171 H (70-99) mg/dl Hemoglobin A1c (4.5-5.6) % Lactate (0.4-2.0) mmol/L Calcium 7.7 L (8.6-10.3) mg/dl Phosphorus (2.5-4.9) mg/dl Troponin I High Sens 27.6 H (0-14) pg/ml Lipase (11-82) U/L Urine Protein (Negative) POC Urine Protein (Negative) Urine Glucose (UA) (Negative) POC Ur Glucose (UA) (Normal) Urine Ketones (Negative) POC Urine Ketones (Negative) Urine Blood (Negative) U Epithel Cells (Auto) (0-5) /lpf SARS-CoV-2 (PCR) (NotDetected) 07/20/22 07/20/22 Range/Units 11:05 12:11 WBC (4.8-10.8) K/ul RBC (4.20-5.40) M/uL MCV (80.0-100.0) fL MCH (25.0-34.0) pg RDW Std Deviation (36.4-46.3) fL Neut # (Auto) (1.40-6.50) K/uL Lymph # (Auto) (1.2-3.4) K/uL [place] # (Auto) (0.11-0.59) K/uL ABG pH (7.35-7.45) ABG pCO2 (35-46) mmHg ABG pO2 (80-95) mmHg ABG HCO3 (19-24) mmol/L ABG O2 Saturation (90-95) % ABG Base Excess (-9-1.8) mEq/L VBG pH (7.36-7.41) VBG pCO2 (38-50) mmHg Sodium (136-145) mmol/L Potassium (3.5-5.1) mmol/L Chloride (98-107) mmol/L Carbon Dioxide (21-32) mmol/L Anion Gap (3-11) Creatinine (0.6-1.2) mg/dl Glucose (70-99(Fasting)) mg/dl POC Glucose 181 H 130 H (70-99) mg/dl Hemoglobin A1c (4.5-5.6) % Lactate (0.4-2.0) mmol/L Calcium (8.6-10.3) mg/dl Phosphorus (2.5-4.9) mg/dl Troponin I High Sens (0-14) pg/ml Lipase (11-82) U/L Urine Protein (Negative) POC Urine Protein (Negative) Urine Glucose (UA) (Negative) POC Ur Glucose (UA) (Normal) Urine Ketones (Negative) POC Urine Ketones (Negative) Urine Blood (Negative) U Epithel Cells (Auto) (0-5) /lpf SARS-CoV-2 (PCR) (NotDetected) (1) DKA (diabetic ketoacidosis) Diabetes mellitus complication detail: without coma Diabetes mellitus type: type 1 Qualified Code(s): E10.10 - Type 1 diabetes mellitus with ketoacidosis without coma
[2022-07-20] MEDS: INSULIN ASPART PER UNIT CHARGE SC SCH ×3 (12:38→20:21)
--- NOTE | 2022-07-20 14:49 | Pharmacy Report ---
Pharmacy Glycemic Short Note 2 - Date of Service July 20, 2022 - Glycemic Short BSG Results (Last 24 hours): 07/19/22 07/19/22 07/19/22 21:26 21:35 22:41 Glucose 313 H* 258 H POC Glucose 325 H* 07/20/22 07/20/22 07/20/22 01:58 02:12 03:20 Glucose 135 H POC Glucose 137 H 137 H 07/20/22 07/20/22 07/20/22 04:18 05:11 06:30 Glucose POC Glucose 122 H 124 H 136 H 07/20/22 07/20/22 07/20/22 07:11 07:40 08:06 Glucose 115 H POC Glucose 113 H 128 H 07/20/22 07/20/22 07/20/22 08:26 09:05 09:47 Glucose POC Glucose 135 H 158 H 171 H 07/20/22 07/20/22 07/20/22 10:13 11:05 12:11 Glucose 182 H POC Glucose 181 H 130 H 07/20/22 07/20/22 13:32 14:38 Glucose POC Glucose 209 H 168 H OUTPATIENT ANTIDIABETIC REGIMEN: * Lantus 24 units SQ qHS * Humalog SSI with meals * A1c = 8.5% ASSESSMENT: * Reema is a 31 yo T1DM admitted with DKA * Morning labs indicated that her anion gap closed, bicarb WNL and BSG at goal. * Dextrose containing fluids were discontinued and patient was started on a diet. * Home dose of Lantus was ordered to be given in overlap with IV insulin infusion. Infusion set to d/c at 1530 or sooner if instructed to hold per insulin adjustment calculator. * Will add overnight checks to ensure adequate glycemic control post transition of the infusion. PLAN FOR INPATIENT GLYCEMIC CONTROL: * Hold outpatient oral diabetes medications * Basal insulin * Lantus 24 units SQ Q24H * Bolus insulin * NovoLog per scale ACHS or Q6hrs while NPO * Goal Range: Low 120 mg/dL - High 150 mg/dL * Correction Factor: 30 mg/dL/unit * Nutritional / Prandial insulin per carb ratio of 1 unit per 9 grams CHO consumed
[2022-07-20] MEDS ORDERED: [UNRECOGNIZED DRUG - REMARK] ONE (15:30)
[2022-07-20 17:02] LABS: BUN Creatinine Ratio 17.9 (10-20); Calcium 8.2 mg/dl (8.6-10.3); Creatinine Clr Calc Pharmacy 113.9 ml/min; Est GFR (African American) 135.8 ml/min; Est GFR (Non-African American) 117.1 ml/min; Potassium 4.1 mmol/L (3.5-5.1)
[2022-07-21] MEDS ORDERED: INSULIN ASPART PER UNIT CHARGE SC SCH
--- NOTE | 2022-07-21 07:39 | Discharge Summary ---
Date of Service July 21, 2022 Admission HPI Per Admitting Provider 31-year-old female with past medical history significant for type 1 diabetes, diagnosed when she was 7 years old, on insulin, history of celiac disease, presents with nausea, vomiting, shortness of breath and chest discomfort. The patient says the cough started yesterday and she was feeling short of breath since last couple of days, but got progressively worse walking short distance, making short of breath and also some chest tightness and today she also started to have nausea, vomiting and sugars were running high, the reason she came here and found to be in DKA. She says she also had some fever spike today. Denies any runny nose or sore throat. No headache, no blurred visions, no earache, no sore throat, no abdominal pain. Normal bowel and bladder movements. Currently, resting comfortably and hemodynamically stable. Admission Exam Per Admitting Provider GENERAL: The patient is of moderate build, not in acute distress. VITAL SIGNS: Temperature 36.8, pulse 102, respiratory rate 16, blood pressure 113/60, oxygen 100% on room air. HEENT: Pupils equal, round and reactive to light. Oral mucosa moist. NECK: No JVD, no neck masses. CARDIOVASCULAR: S1 and S2 heard, regular rate and rhythm. No murmur, no gallop. RESPIRATORY SYSTEM: Normal AP diameter. No accessory muscle use. No wheezing, no crackles. ABDOMEN: Soft, bowel sounds present, nontender, no distention. CENTRAL NERVOUS SYSTEM: Alert and oriented. Speech is clear. No facial droop. Obeys simple commands. Moves extremities. EXTREMITIES: No edema, no erythema. Principal Diagnosis Diabetic ketoacidosis COVID 19 infection Discharge Exam Patient left AMA on 07/20/22 night Discharge Data Allergies Allergy/AdvReac Type Severity Reaction Status Date / Time clarithromycin Allergy Unknown ? Unverified 07/19/22 23:53 Consultations 07/19/22 22:35 ED Decision to Admit Stat Ordered Studies 07/19/22 23:34 CT angio chest PE protocol Urgent Hospital Course (1) DKA (diabetic ketoacidosis): (2) Diabetes mellitus type 1, uncontrolled: (3) Coronavirus infection: Patient found to be in DKA on presentation Was started on IVF, insulin drip per protocol Anion gap has closed. Was transitioned to subcut insulin and diet started HbA1c is 8.5 Patient tested + to COVID 19 CTA chest was normal and lungs did not show consolidation Currently on room air No need for COVID specific therapies Continue supportive care (4) Elevated troponin: Trop mildly elevated EKG showed sinus rhythm May be related to acute illness, ?demand ischemia Patient left AMA on the night of 07/20/22 PCP to follow up and continue management Total Time Total Time Spent Total Time Spent (In Minutes): 25 Discharge Plan Discharge Items Patient Disposition: Against Medical Advice Reason For Visit: DKA Condition on Discharge: Fair Activity: As commented below Activity Comment: as per pcp Non-emergency contact: Primary Care Provider Follow-up/Referrals: Ed Stone [Primary Care Provider] - Pending Studies at Discharge: No Stand-Alone Forms: [employer], Smoking Cessation Medications and DC Order Prescriptions: Continued insulin lispro 100 unit/mL insulin pen 0 sliding scale dose SUBCUT TIDM Rx Instructions: Per sliding scale & correction factor insulin glargine [Lantus Solostar U-100 Insulin] 100 unit/mL (3 mL) insulin pen 24 unit SUBCUT QPM cholecalciferol (vitamin D3) [Vitamin D3] 25 mcg (1,000 unit) Tablet 0 mcg PO DAILY Discharge Orders: Left Against Medical Advice (Routine); Ordered 07/20/22 Ordered By: Kali Armas/Other Patient Handouts: Managing Type 1 Diabetes, Diabetic Ketoacidosis Admission Data Admit Date/Time: 07/19/22 23:12 Attending Provider: Maribel Rios I. Admit Provider: Kali Ken Primary Care Provider: Ed Stone
--- NOTE | 2022-07-21 18:10 | Electrocardiogram Report ---
Test Reason : Blood Pressure : / mmHG Vent. Rate : 098 BPM Atrial Rate : 098 BPM P-R Int : 136 ms QRS Dur : 080 ms QT Int : 368 ms P-R-T Axes : 054 041 071 degrees QTc Int : 469 ms Normal sinus rhythm Normal ECG When compared with ECG of 19-JUL-2022 22:01, Nonspecific T wave abnormality now evident in Anterior leads Confirmed by Dereck Gutierrez ([id number]) on 07/21/2022 6:09:53 PM Referred By: REFERRED SELF Confirmed By:Carlitos Gutierrez
== END 2022-07-20 20:30 | disposition left against medical advice (07) | DRG 637 ==
LOC: ED 21:20 → INTOOBSV 23:12 → 1E 23:12